=== PATIENT | female | born 1925 | race Caucasian/White ===

== ENCOUNTER → 2016-05-10 | Day surgery (SDC) | payer OTHER ==
[~2016-05-10] MED LIST: ACETAMINOPHEN; ACETAMINOPHEN PO; ACETAMINOPHEN RC; ACETAMINOPHEN325 MG PO; ACTONEL PO; ALIGN4 MG PO; AMIODARONE; AMIODARONE HCL100 MG PO; AMIODARONE PO; APPEAREX2500 MC1; APRESOLINE; ASPIRIN EC81 M1 PO; ASPIRIN81 M2 PO; AUGMENTIN PO; AUGMENTIN875 M1 PO; B-12250 MCG; B6100 MG; BACITRACIN15 GM TOP; BACTROBAN22 GM TP; BIOTIN PO; BISACODYL10 MG/SUPP PR; BONIVA150 MG PO; BUMEX1 MG; BUMEX1 MG PO; BYSTOLIC PO; BYSTOLIC5 MG PO; CALCITRIOL0.25 MCG; CALCITRIOL0.25 MCG PO; CALCITROL PO; CALCIUM + D 6001 TA1 PO; CALCIUM 500 +1 EAC2 PO; CALCIUM 600 +1 EAC3; CALTRATE 600+D PO; CARVEDILOL25 MG PO; CEFEPIME HCL IV; CEFEPIME IV; CITRACAL PO; CITRUCEL; CITRUCEL PO; CITRUCEL500 MG PO; CLARITIN-D1 TAB 241 PO; COLACE PO; COLCHICINE; CORDARONE200 M1 PO; COREG PO; COUMADIN; COUMADIN PO; COZAAR; COZAAR PO; CYANOCOBAL1000 MCG/M INJ; DIFLUCAN PO; DULCOLAX5 M1 PO; ELIQUIS2.5 MG PO; ELIQUIS5 MG PO; ELMIRON100 MG; ELMIRON100 MG PO; EPOGEN2000 U/ML IJ; EPOGEN4000 U/ML; ESTRACE42.5 GM VG; FOLIC ACID; FOLIC ACID PO; FOLIC ACID1 MG; FOSAMAX; HUMIBID-LA600 MG PO; HYDRALAZINE HCL25 MG PO; HYDRALAZINE HCL50 MG PO; HYDROCODON-ACE1 EAC9 PO; HYDROXYQUINOLINE1 GM VG; IMODIUM2 MG PO; INVANZ1 G/VIA1 IV; ISOSORBIDE DINI30 MG PO; K-DUR20 ME1; KCL PO; KEFLEX PO; KEFLEX500 M1 PO; LASIX; LASIX PO; LEVOTHYROXINE75 MC1 PO; LEVOTHYROXINE88 MCG PO; LIDODEXTRAPINE1 EACH TP; LISINOPRIL20 MG PO; MAALOX REGULAR600 MG PO; MACROBID 100 M100 MG PO; MAG-OXIDE400 MG; MAG-OXIDE400 MG PO; MEROPENEM500 M1 IV; MERREM500 MG INJ; MILK OF MAGNESIA PO; MORPHINE SULFAT15 M1 PO; MS CONTIN PO; MS CONTIN15 M1 PO; MS CONTIN15 MG; MS CONTIN15 MG PO; MSIR15 M1 PO; MULTI-VITAMIN1 TAB; NEURONTIN100 MG PO; NEXIUM PO; NORCO 5/325 TAB1 TAB PO; NORVASC PO; OMEPRAZOLE20 M1 PO; OYSTER CALCIUM500 MG; OYSTER CALCIUM500 MG PO; PACERONE PO; PHENERGAN IJ; PHENERGAN PO; PHENERGAN12.5 MG PO; PHENERGAN12.5 MG/0. INJ; PHENERGAN25 M1 PO; PHENERGAN25 MG PO; POTASSIUM CHLO10 ME1 PO; PREDNISONE PO; PRILOSEC20 M1; PRILOSEC20 M1 PO; PRILOSEC20 MG PO; PROBIOTIC1 EAC1 PO; PROBIOTIC1 EACH PO; PROBIOTIC250 MG PO; PROCRIT SUBQ; PROLIA60 MG/1 ML; PROLIA60 MG/1 ML SQ; PROTONIX PO; PYRIDIUM PO; PYRIDIUM100 MG PO; REMERON PO; SANTYL15 G1 TP; SYNTHROID; SYNTHROID PO; SYNTHROID0.05 MG; SYNTHROID0.05 MG PO; TETRACYCLINE PO; TRIMO-SAN VG; TUMS500 M1 PO; TUMS500 MG PO; TYLENOL ARTHRITIS PO; VAGIFEM10 MCG VG; VIT B-12 SQ; VIT B12 INJ; VITAMIN B-12 INJ; VITAMIN B-6 PO; VITAMIN D 22000 UNIT PO; XARELTO10 MG PO; ZOFRAN PO; ZYLOPRIM; ZYLOPRIM PO; ZYLOPRIM100 MG PO; [UNRECOGNIZED DRUG - CODE] INJ; [UNRECOGNIZED DRUG - OTHER]; [UNRECOGNIZED DRUG - OTHER] PO; [UNRECOGNIZED DRUG - OTHER] RC
--- NOTE | ~2016-05-10 | OR ---
Unit #: [id number] #: [id number] Patient: HO EDOUARD [id number] [address] [place], [place] [address] [id number] O MR#: [id number] NAME: HO EDOUARD. ROOM: Date of Procedure: 05/10/2016 Admission Date: 05/10/2016 Surgeon: Cali Gomes M.D. : 1925 Attending Physician: Cali Gomes M.D. Primary Care Physician: Tadeo Love D.O. OPERATIVE REPORT PREOPERATIVE DIAGNOSES 1. Neck pain. 2. Cervical facet disease. 3. Cervical radiculopathy. POSTOPERATIVE DIAGNOSES 1. Neck pain. 2. Cervical facet disease. 3. Cervical radiculopathy. PROCEDURES PERFORMED Cervical facet injection x2 levels with intravenous sedation and fluoroscopic guidance for needle localization. 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 She was treated with a trial of cervical epidural steroids, which really did not significantly help her. Facet injections were then done in mid 01/2016 and the patient did fairly well. She thinks for about two and half to three months to resurface those symptoms. The plan is to repeat the facet injections for the most symptomatic levels. There is significant pathology from C3 through C7. It appears that C4-C5 and C5-C6 the most abnormal. The patient is mostly right-sided. The patient also is requesting possible repeat lumbar facet injections. She last had been done several years ago. We will research that and see if we can get this schedule to try or repeat facet injections if indeed they were helpful. DESCRIPTION OF PROCEDURE The patient was placed in the seated position. Standard monitors were applied. Versed 1 mg was given for sedation and anxiolysis, which was adequate. Vital signs remained stable. Sterile prep and drape then of the cervical area was then performed. The skin then to the right of midline overlying the C4-C5 and C5-C6 facet joints were localized with 1% lidocaine. At each of these levels, a 22-gauge Quincke point spinal needle was advanced with fluoroscopic guidance to bring the needle tip to advance those respective facet joints. There also was an anterolisthesis of C4 and C5. Once the needle position was confirmed with fluoroscopy, a dose of 1.5 mL of mixture of 80 mg of Depo-Medrol and 2 mL of 0.25% bupivacaine was deposited at each level. The needles were flushed and removed. The patient tolerated the procedure otherwise well and was discharged to the recovery room in stable condition. Unit #: [id number] #: [id number] Patient: HO EDOUARD Dictated by... Chucky Khalil/sylwia TD: 05/11/2016 03:35 JOB #: [id number] OPERATIVE REPORT Page 1 of 1 X Cali Gomes MD X PROCEDURE OPERATIVE NOTE
== END | disposition home or self-care (01) ==
LOC: CCSC 10:10
DX: M47.22 Other spondylosis with radiculopathy, cervical region (principal); M53.82 Other specified dorsopathies, cervical region; M50.121 Cervical disc disorder at C4-C5 level with radiculopathy; M50.122 Cervical disc disorder at C5-C6 level with radiculopathy; K21.9 Gastro-esophageal reflux disease without esophagitis; I25.10 Atherosclerotic heart disease of native coronary artery without angina pectoris; I10 Essential (primary) hypertension; E03.9 Hypothyroidism, unspecified; Z79.899 Other long term (current) drug therapy; Z86.2 Personal history of diseases of the blood and blood-forming organs and certain disorders involving the immune mechanism; Z86.73 Personal history of transient ischemic attack (TIA), and cerebral infarction without residual deficits; Z86.69 Personal history of other diseases of the nervous system and sense organs
CPT/HCPCS: J1040; J2250

== ENCOUNTER → 2016-08-09 | Day surgery (SDC) | payer OTHER ==
--- NOTE | ~2016-08-09 | OR ---
Unit #: [id number] #: [id number] Patient: HO EDOUARD [id number] [address] [place], [place] [address] [id number] O MR#: [id number] NAME: HO EDOUARD ROOM: Date of Procedure: 08/09/2016 Admission Date: 08/09/2016 Surgeon: Cali Gomes M.D. : 1925 Attending Physician: Cali Gomes M.D. Primary Care Physician: Tadeo Love D.O. OPERATIVE REPORT PREOPERATIVE DIAGNOSES Neck pain, cervical facet disease. POSTOPERATIVE DIAGNOSES Neck pain, cervical facet disease. PROCEDURE PERFORMED Cervical facet injection x2 levels with intravenous sedation and fluoroscopic guidance for needle localization. INDICATIONS FOR PROCEDURE The patient is an 89-year-old female with return of right-sided neck pain to nonoperative significant degenerative cervical facet disease. She has done well with p.r.n. injections for about 3 months, so plan is to repeat injection at this point based on history, her pathology, and return of symptoms. Decision was made to send the patient for a trial of an epidural steroid injection to address her back pain and radiculopathy. DESCRIPTION OF PROCEDURE The patient was placed in a seated position. Standard monitors were applied. Sterile prep and drape of the right side of the neck was performed. 2 mg of Versed were given for sedation and anxiolysis, which were adequate. Vital signs remained stable. Sterile prep and drape then of the cervical area was performed. The skin lateral to the right C4-C5 and C5-C6 facet joints localized with 1% lidocaine. At both of these levels, a Quincke point spinal needle was advanced with fluoroscopic guidance to bring the needle tip to within the edge of the respective C4-C5 and C5-C6 facet joints. After this was confirmed with fluoroscopy, a dose of 1 mL of a mixture of 80 mg of Depo-Medrol and 1 mL of 0.25% bupivacaine was injected at each site. The patient tolerated the procedure otherwise well and was discharged to the recovery room in stable condition. Dictated by... Chucky Khalil/sylwia TD: 08/09/2016 16:53 JOB #: [id number] Unit #: [id number] #: [id number] Patient: HO EDOUARD OPERATIVE REPORT Page 1 of 1 X Cali Gomes MD X PROCEDURE OPERATIVE NOTE
== END | disposition home or self-care (01) ==
LOC: CCSC 07-28 11:15
DX: M47.892 Other spondylosis, cervical region (principal); M51.16 Intervertebral disc disorders with radiculopathy, lumbar region; M43.16 Spondylolisthesis, lumbar region; K21.9 Gastro-esophageal reflux disease without esophagitis; I25.10 Atherosclerotic heart disease of native coronary artery without angina pectoris; I10 Essential (primary) hypertension; Z86.73 Personal history of transient ischemic attack (TIA), and cerebral infarction without residual deficits
CPT/HCPCS: J1040; J2250

== ENCOUNTER → 2016-09-06 | Day surgery (SDC) | payer OTHER ==
--- NOTE | ~2016-09-06 | OR ---
Unit #: [id number] #: [id number] Patient: HO EDOUARD [id number] [address] [address] [id number] O MR#: [id number] NAME: HO EDOUARD. ROOM: Date of Procedure: 09/06/2016 Admission Date: 09/06/2016 Surgeon: Cali Gomes M.D. : 1925 Attending Physician: Cali Gomes M.D. Primary Care Physician: Tadeo Love D.O. OPERATIVE REPORT JOB NOTE: CC: [facility] PREOPERATIVE DIAGNOSES Back pain, lumbar facet disease. POSTOPERATIVE DIAGNOSES Back pain, lumbar facet disease. PROCEDURE PERFORMED Lumbar facet injection x2 levels with intravenous sedation and fluoroscopic guidance for needle localization. INDICATIONS FOR PROCEDURE The patient is an 89-year-old female, she has significant degenerative facet disease in the neck and low back. She did well with facet injections for her neck. She has been having significant back problem with significant facet disease at L4-L5 and L5-S1. Plan is for trial of facet injections. DESCRIPTION OF PROCEDURE The patient was placed in a prone position. Standard monitors were applied. 1 mg of Versed was given for sedation and anxiolysis, which were adequate. Vital signs remained stable. Sterile prep and drape then of the lumbar area was performed. The skin then at the L4-L5 and L5-S1 level was localized overlying these. A 22-gauge Quincke point needle was then advanced down to the right-sided L4-L5 and L5-S1 facet joints. After confirming proper positioning, a dose of 80 mg of Depo-Medrol and 3 mL of 0.25% bupivacaine was used. 1 mL of this mixture was injected at each joint. The exact same procedure was then repeated on the right side at the L4-L5 and L5-S1 levels. After proper position was confirmed, the same dose of 1 mL of mixture was used. The needles were flushed and removed. Dictated by... Cali Gomes M.D. LHP/modl TD: 09/06/2016 12:45 JOB #: [id number] Unit #: [id number] #: [id number] Patient: SILKE,HO D OPERATIVE REPORT Page 1 of 1 X Cali Gomes MD X PROCEDURE OPERATIVE NOTE
== END | disposition home or self-care (01) ==
LOC: CCSC 10:55
DX: M47.26 Other spondylosis with radiculopathy, lumbar region (principal); M53.86 Other specified dorsopathies, lumbar region; I25.10 Atherosclerotic heart disease of native coronary artery without angina pectoris; I10 Essential (primary) hypertension; K21.9 Gastro-esophageal reflux disease without esophagitis; D64.9 Anemia, unspecified; Z86.73 Personal history of transient ischemic attack (TIA), and cerebral infarction without residual deficits; Z79.01 Long term (current) use of anticoagulants; Z79.891 Long term (current) use of opiate analgesic; Z79.899 Other long term (current) drug therapy
CPT/HCPCS: J1040; J2250